=== PATIENT | male | born 1940 | race Hispanic/Latino ===

== ENCOUNTER 2017-10-28 09:00 | Inpatient (IN) | payer MEDICARE ==
[~2017-10-28] VITALS: Ht 170.2 cm; Wt 81.9 kg
[~2017-10-28 09:00] MED LIST: ASPI81TA40 PO; ATOR20TA65 PO; DORZ10DR14 OU; IRON1CAP30 PO; XALA2.5OS OU
[2017-10-29 14:53] LABS: BASOPHILS % (AUTO) 0.4 % (0.0-5.0); EOSINOPHILS % (AUTO) 3.4 % (0.0-8.0); HEMATOCRIT 40.6 % (42-54); LYMPHOCYTES % (AUTO) 21.9 % (21.0-51.0); MEAN CORPUSCULAR HGB CONC 32.5 g/dL (32.0-36.0); MONOCYTES % (AUTO) 10.6 % (3.0-13.0); NEUTROPHILS % (AUTO) 63.7 % (40.0-77.0); NUCLEATED RED BLOOD CELLS 0.1 % (0.0-0.19); PLATELET COUNT (AUTO) 187 K/uL (130-400); RED BLOOD CELL COUNT(AUTO) 5.49 MIL/uL (4.50-6.20); RED CELL DISTRIBUTION WIDTH 16.5 % (11.0-15.5); WHITE BLOOD COUNT (AUTO) 3.9 K/uL (4.8-10.8)
[2017-10-29 15:39] LABS: INR 0.98 (0.85-1.15); PROTHROMBIN TIME 10.3 SEC (9.6-11.6)
[2017-10-29 15:46] LABS: APPEARANCE,URINE Clear (CLEAR); BILIRUBIN,URINE Negative (NEGATIVE); COLOR,URINE Yellow (YELLOW); GLUCOSE, URINE (UA) Negative (NEGATIVE); KETONES,URINE Negative (NEGATIVE); LEUKOCYTE ESTERASE ,URINE Negative (NEGATIVE); NITRATE,URINE Negative (NEGATIVE); OCCULT BLOOD,URINE Trace (NEGATIVE); PH,URINE 6.5 (5.0-8.0); PROTEIN,URINE Negative (NEGATIVE)
[2017-10-29 15:53] VITALS: BP 171/70
[2017-10-29 15:57] LABS: BACTERIA,URINE Rare /HPF (None Seen); RBC,URINE None Seen /HPF (0-1); WBC,URINE 0-1 /HPF (0-1)
[2017-10-29] MEDS ORDERED: LISI-617 PO (16:05)
[2017-10-29] MEDS ORDERED: TRAM-355 PO (16:05)
[2017-10-29] MEDS ORDERED: FURO20TA4 PO (16:05)
[2017-10-29] MEDS ORDERED: CLOP75TA32 PO (16:05)
[2017-10-29] MEDS ORDERED: BRIMONIDINE OS (16:05)
[2017-10-29] MEDS ORDERED: PANT40TA25 PO (16:05)
[2017-10-29] MEDS ORDERED: METO25TA6 PO (16:14)
[2017-10-30] VITALS (21 sets, daily range): BP systolic 91–187; BP diastolic 40–83
[2017-10-30] MEDS ORDERED: LACTATED RINGERS 1000ML 0 ML IV ONE (05:40)
[2017-10-30] MEDS ORDERED: SODIUM CHLORIDE 0.9% 1000ML 1,000 ML IV ONE (06:25)
[2017-10-30] MEDS: CEFAZOLIN SODIUM 1 GM VIAL ONE ×2 (06:33→07:40)
[2017-10-30] MEDS ORDERED: ONDANSETRON HCL 4 MG/2 ML VIAL ONE (06:49)
[2017-10-30] MEDS ORDERED: MIDAZOLAM HCL 1 MG/ML 2ML VIAL ONE (06:49)
[2017-10-30] MEDS ORDERED: GLYCOPYRROLATE 0.2 MG/ML 5 ML VIAL ONE (06:49)
[2017-10-30] MEDS ORDERED: LIDOCAINE PF 2% 5ML ABBOJECT ONE (06:49)
[2017-10-30] MEDS ORDERED: SUCCINYLCHOLINE 200MG/10ML SYR ONE (06:49)
[2017-10-30] MEDS ORDERED: DEXAMETHASONE SOD PHOSPHATE 10MG/ML 1ML VIAL ONE (06:49)
[2017-10-30] MEDS ORDERED: FENTANYL CITRATE PF 50 MCG/1 ML 2ML VIAL ONE ×2 (06:50→08:10)
[2017-10-30] MEDS ORDERED: PROPOFOL 10 MG/ML 20ML VIAL IV ONE (06:50)
[2017-10-30] MEDS ORDERED: EPHEDRINE SULFATE 50 MG/ML AMPULE ONE (06:50)
[2017-10-30] MEDS ORDERED: HEPARIN SODIUM 1000UNIT/ML 10ML VIAL ONE ×2 (07:11→07:47)
[2017-10-30] MEDS ORDERED: NEOMY SULF/POLYMYXIN B SULFATE 1 ML AMPUL IR ONE (07:11)
[2017-10-30] MEDS ORDERED: THROMBIN-JMI 5000 UNIT/VIAL TP ONE (07:11)
[2017-10-30] MEDS ORDERED: ISOVUE-300 100 ML VIAL IV ONE (07:48)
[2017-10-30] MEDS ORDERED: ATROPINE SULFATE 0.1 MG/ML 10 ML SYG IVP ONE ×2 (08:34→08:53)
[2017-10-30] MEDS ORDERED: PROTAMINE SULFATE 10 MG/ML 25ML VIAL IV ONE (09:01)
[2017-10-30] MEDS ORDERED: TEMAZEPAM 30 MG CAP PO PRN (09:30)
[2017-10-30] MEDS ORDERED: TRAMADOL /APAP 37.5MG/325MG TAB PO PRN (09:30)
[2017-10-30] MEDS ORDERED: ACETAMINOPHEN-CODEINE 300/30MG TAB PO PRN (09:30)
[2017-10-30] MEDS ORDERED: LABETALOL 20 MG/4 ML DISP.SYRIN IV PRN (09:30)
[2017-10-30] MEDS ORDERED: ONDANSETRON HCL 4 MG/2 ML VIAL IVP PRN (09:30)
[2017-10-30] MEDS ORDERED: SODIUM CHLORIDE 0.9% 1000ML 1,000 ML IV SCH (09:30)
[2017-10-30] MEDS: ACETAMINOPHEN-CODEINE 300/30MG TAB PO PRN ×2 (12:10→16:55)
[2017-10-30] MEDS: NITROGLYCERIN 1GM/1 INCH PACKET TD SCH ×2 (12:14→17:10)
[2017-10-30] MEDS: CEFAZOLIN SODIUM 1 GM VIAL IVP SCH ×2 (13:54→21:50)
[2017-10-30] MEDS ORDERED: CEFAZOLIN 1GM / D5W 50ML 50 ML IV SCH (14:30)
[2017-10-30] MEDS: DORZOLAMIDE HCL 2% 10ML DROPS OU SCH (20:50)
[2017-10-30] MEDS: METOPROLOL TARTRATE 25 MG TAB PO SCH (20:51)
[2017-10-30] MEDS: TIMOLOL MALEATE 0.5% 5 ML BOTTLE OU SCH (20:51)
[2017-10-30] MEDS ORDERED: LATANOPROST 2.5 ML DROPS OU SCH (21:00)
[2017-10-30] MEDS ORDERED: ATORVASTATIN CALCIUM 20 MG TABLET PO SCH (21:00)
[2017-10-31] VITALS (9 sets, daily range): BP systolic 86–105; BP diastolic 40–62
[2017-10-31] MEDS: NITROGLYCERIN 1GM/1 INCH PACKET TD SCH ×2 (02:12→08:21)
[2017-10-31 03:50] LABS: HEMATOCRIT 33.2 % (42-54); MEAN CORPUSCULAR HEMOGLOBIN 24.6 pg (27.0-33.0); MEAN CORPUSCULAR HGB CONC 33.4 g/dL (32.0-36.0); MEAN CORPUSCULAR VOLUME 73.6 fL (79-99); PLATELET COUNT (AUTO) 140 K/uL (130-400); RED BLOOD CELL COUNT(AUTO) 4.51 MIL/uL (4.50-6.20); RED CELL DISTRIBUTION WIDTH 16.4 % (11.0-15.5); WHITE BLOOD COUNT (AUTO) 6.2 K/uL (4.8-10.8)
[2017-10-31 04:12] LABS: CREATININE 0.8 mg/dL (0.5-1.5); MAGNESIUM 1.6 mg/dL (1.80-2.40); POTASSIUM 3.7 mmol/L (3.5-5.1)
[2017-10-31] MEDS ORDERED: MAGNESIUM OXIDE 400 MG TABLET PO SCH (06:45)
[2017-10-31] MEDS: METOPROLOL TARTRATE 25 MG TAB PO SCH (08:15)
[2017-10-31] MEDS: DORZOLAMIDE HCL 2% 10ML DROPS OU SCH (08:20)
[2017-10-31] MEDS: TIMOLOL MALEATE 0.5% 5 ML BOTTLE OU SCH (08:20)
[2017-10-31] MEDS ORDERED: FUROSEMIDE 20 MG TABLET PO SCH (09:00)
[2017-10-31] MEDS ORDERED: DOCUSATE CALCIUM 240 MG CAP PO SCH (09:00)
[2017-10-31] MEDS ORDERED: LISINOPRIL 5 MG TABLET PO SCH (09:00)
[2017-10-31] MEDS ORDERED: CLOPIDOGREL BISULFATE 75 MG TAB PO SCH (09:00)
[2017-10-31] MEDS ORDERED: PANTOPRAZOLE SODIUM 40 MG TABLET.DR PO SCH (09:00)
[2017-10-31] MEDS ORDERED: INTEGRA PO SCH (09:00)
[2017-10-31] MEDS ORDERED: ASPIRIN 81 MG EC TAB PO SCH (09:00)
[2017-10-31] MEDS ORDERED: SENNOSIDES 8.6 MG TABLET PO SCH (09:00)
== END 2017-10-31 12:40 | disposition home or self-care (01) | DRG 36 ==
LOC: EDSTATUS 10-29 13:00 → DAHIP 10-30 05:39 → 2BH 10-30 08:43
PROVIDERS: ADMIT Internal Medicine Cardiovascular Disease; ATTEND Internal Medicine Cardiovascular Disease
PROC: 037M3DZ Dilation of Right External Carotid Artery with Intraluminal Device, Percutaneous Approach (ICD-10-PCS; principal; 2017-10-30 07:20)
DX: I65.23 Occlusion and stenosis of bilateral carotid arteries (principal); I11.9 Hypertensive heart disease without heart failure; E66.9 Obesity, unspecified; E78.00 Pure hypercholesterolemia, unspecified; E78.5 Hyperlipidemia, unspecified; I25.10 Atherosclerotic heart disease of native coronary artery without angina pectoris; M19.90 Unspecified osteoarthritis, unspecified site; Z95.1 Presence of aortocoronary bypass graft; Z68.28 Body mass index [BMI] 28.0-28.9, adult
CPT/HCPCS: 36415; 37215; 71045; 80048; 80061; 81001; 83735; 84100; 85025; 85027; 85347; 85610; 85730; 86850; 86900; 86901; 93005; A4218; C1725; C1769; C1894; J0330; J0461; J0690; J1100; J1644; J2001; J2250; J2405; J2704; J2720; J3010; J3490; J7030; J7040; J7120; Q9967